=== PATIENT | female | born 1985 | race Two or more races ===

== ENCOUNTER → 2021-04-18 08:18 | Outpatient (BNVA) | payer OTHER, SELFPAY | PROVIDERS: PCP Internal Medicine; Referring Provider Internal Medicine; Visit Provider Physician Assistant ==

== ENCOUNTER → 2021-09-15 15:32 | Outpatient (BNVA) | payer OTHER, SELFPAY | PROVIDERS: PCP Internal Medicine; Visit Provider Physician Assistant Surgical | DX: Z13.89 Encounter for screening for other disorder (principal) ==

== ENCOUNTER → 2021-09-24 11:01 | Outpatient (BNVA) | payer OTHER, SELFPAY | PROVIDERS: PCP Internal Medicine; Referring Provider Internal Medicine; Visit Provider Physician Assistant Surgical | DX: E66.9 Obesity, unspecified (principal) ==

== ENCOUNTER → 2021-10-17 09:30 | Outpatient (BNVA) | payer OTHER, SELFPAY | PROVIDERS: PCP Internal Medicine; Visit Provider Physician Assistant Surgical | DX: Z13.89 Encounter for screening for other disorder (principal) ==

== ENCOUNTER 2021-10-17 17:00 | Outpatient (REF) | payer OTHER, SELFPAY ==
[2021-10-18 15:18] LABS: H Pylori Breath Test Negative (Negative)
== END 2021-10-17 17:01 | disposition home or self-care (01) ==
LOC: HO.LNP 17:00
PROVIDERS: Visit Provider Physician Assistant Surgical
DX: E66.9 Obesity, unspecified (principal); Z11.0 Encounter for screening for intestinal infectious diseases
CPT/HCPCS: 83013

== ENCOUNTER → 2021-10-24 09:45 | Outpatient (BNVA) | payer OTHER, SELFPAY | PROVIDERS: PCP Internal Medicine; Visit Provider Dietitian, Registered | DX: E66.9 Obesity, unspecified (principal) | CPT/HCPCS: 97802 ==

== ENCOUNTER 2021-11-21 09:00 | Outpatient (REF) | payer OTHER, SELFPAY ==
--- NOTE | ~2021-11-21 | XR_ITS ---
EXAMINATION: XR CHEST CLINICAL INFORMATION: Obesity COMPARISON: None TECHNIQUE: 2 views of the chest were obtained. FINDINGS: No significant abnormality is noted involving the heart, lungs, mediastinum, bony thorax or soft tissues. XR/XR chest 2V IMPRESSION: Unremarkable chest examination.
--- NOTE | 2021-11-21 09:11 | ECG_ITS ---
Test Reason : e66.9 Blood Pressure : / mmHG Vent. Rate : 058 BPM Atrial Rate : 058 BPM P-R Int : 154 ms QRS Dur : 090 ms QT Int : 392 ms P-R-T Axes : 050 016 012 degrees QTc Int : 384 ms Sinus bradycardia with sinus arrhythmia Otherwise normal ECG No previous ECGs available Referred By: Musa Geiger Electronically Signed By:Jose Riddle
[2021-11-21 09:26] LABS: MANUAL DIFF FLAG NO
[2021-11-21 09:43] LABS: Basophils Percent Auto 0.6 % (0-2); Eosinophils Absolute Auto 0.2 X10*3/uL (0.0-0.4); Eosinophils Percent Auto 2.8 % (0-4); Hematocrit 43.5 % (37.0-47.0); Hemoglobin 15.1 g/dl (12.0-16.0); Imm Gran Abs Auto 0.03 X10*3/uL (0.00-0.03); Imm Gran Pct Auto 0.6 % (0.0-0.4); Lymphocytes Absolute Auto 2.5 X10*3/uL (1.2-4.9); Lymphocytes Percent Auto 45.7 % (20-40); Mean Corpuscular HGB Conc 34.7 g/dl (31.0-35.0); Mean Corpuscular Hemoglobin 30.6 pg (27.0-33.0); Mean Corpuscular Volume 88.2 fL (80.0-98.0); Mean Platelet Volume 9.9 fL (9.4-12.3); Monocytes Absolute Auto 0.4 X10*3/uL (0.1-1.2); Monocytes Percent Auto 7.2 % (2-11); Neutrophils Absolute Auto 2.3 x10*3/uL (2.0-8.3); Neutrophils Percent Auto 43.1 % (45-73); Platelet Count 249 X10*3/uL (160-400); Red Blood Count 4.93 X10*6/uL (4.20-5.50); White Blood Count 5.4 X10*3/uL (4.8-10.8)
[2021-11-21 10:21] LABS: Alanine Aminotransferase 55 U/L (0-31); Albumin Level 4.4 g/dL (3.5-5.0); Alkaline Phosphatase 50 U/L (39-117); Anion Gap 10 (12-20); Aspartate Amino Transferase 41 U/L (5-31); Bilirubin Total 0.5 mg/dL (0.0-1.0); Blood Urea Nitrogen 8 mg/dL (9-16); C Reactive Protein 0.47 mg/dL (< or = 0.50); Calcium 9.3 mg/dL (8.4-10.2); Carbon Dioxide 29 mmol/L (22-29); Chloride 103 mmol/L (96-108); Cholesterol 158 mg/dL; Estimated Glomerular Filt Rate > 60; Glucose Random 104 mg/dL (60-115); HDL Cholesterol 34 mg/dL; Iron 148 mcg/dL (30-160); LDL Cholesterol Calculated 92 mg/dl; Percent Iron Saturation 54 % (15-50); Potassium 4.2 mmol/L (3.3-5.1); Sodium 138 mmol/L (135-145); Total Iron Binding Capacity 276 mcg/dL (228-428); Triglycerides 161 mg/dL; Unsaturated Iron Binding 128 ug/dL
[2021-11-21 10:39] LABS: Ferritin 159 ng/mL (10-122); TSH reflex Free T4 0.49 uIU/mL (0.32-4.0); Vitamin D 25-OH Total 10.3 ng/mL (>30)
[2021-11-21 10:42] LABS: Folate 17.6 ng/mL (> or = 4.0); Vitamin B12 538 pg/mL (200-900)
[2021-11-21 10:52] LABS: Insulin 32 uU/mL (2-29)
[2021-11-21 11:20] LABS: Estimated Average Glucose 131 mg/dL; Hemoglobin A1c % 6.2 %
[2021-11-25 12:11] LABS: Calcium (PTHI) 9.5 mg/dL (8.6-10.2); PTHI 43 pg/mL (16-77)
[2021-11-25 16:42] LABS: Zinc 71 mcg/dL (60-130)
[2021-11-26 09:47] LABS: Vitamin A 50 mcg/dL (38-98)
[2021-11-29 15:56] LABS: Vitamin B1 9 nmol/L (8-30)
== END 2021-11-21 09:01 | disposition home or self-care (01) ==
LOC: HO.LAB 09:00
PROVIDERS: Visit Provider Physician Assistant Surgical
DX: Z01.818 Encounter for other preprocedural examination (principal); E66.9 Obesity, unspecified
CPT/HCPCS: 36415; 71046; 80053; 80061; 82306; 82607; 82728; 82746; 83036; 83525; 83540; 83970; 84425; 84443; 84590; 84630; 85025; 86140; 93005

== ENCOUNTER 2021-12-01 09:18 | Outpatient (REF) | payer OTHER, SELFPAY ==
--- NOTE | ~2021-12-01 | FL_ITS ---
EXAMINATION: XR FLUOROSCOPY UPPER GI WITH AIR CLINICAL INFORMATION: Obesity. Preoperative evaluation prior to gastric bypass surgery COMPARISON: None TECHNIQUE: After effervescent granules, fluoroscopic spot images were obtained as the patient swallowed thick and thin barium in upright and prone positions. FINDINGS: The patient initiated swallowing normally. There is ineffective primary peristalsis with to-and-fro tertiary contractions most notable with prone swallowing. No fixed esophageal mucosal abnormality to suggest stricture or mass. No spontaneous gastroesophageal reflux observed or elicited with Valsalva maneuver. No hiatal hernia seen. Gastric fold pattern and distensibility is normal. Normal appearance of the gastric antrum. The duodenal bulb and sweep have a normal fold pattern and distensibility. FLUOROSCOPY TIME: 2.9 minutes DOSE AREA PRODUCT: 41.266 Gy-cm2 (rogers-centimeter squared) FL/FL upper GI w air IMPRESSION: Ineffective primary esophageal peristalsis with tertiary contractions most notable in the prone position. No hiatal hernia seen. No esophageal reflux observed. Normal appearance of the stomach and duodenum.
--- NOTE | ~2021-12-01 | US_ITS ---
EXAMINATION: US COMPLETE ABDOMEN WITH LIVER ELASTOGRAPHY CLINICAL INFORMATION: Obesity COMPARISON: None. TECHNIQUE: Real-time imaging of the abdominal viscera. Noninvasive ultrasound liver fibrosis assessment is performed using [place] ElastPQ point quantification shear wave elastography (2D-SWE) with a C5-2 MHz transducer. Multiple elastography samples are obtained. FINDINGS: PANCREAS: Normal. The visualized pancreatic head and body are normal in appearance. The remainder of the pancreas is obscured from visualization by the overlying bowel gas. ABDOMINAL AORTA: The proximal, middle, and distal aortic segments are normal in caliber. INFERIOR VENA CAVA: Visualized portions are normal. LIVER: Diffusely increased in echogenicity compatible with hepatic steatosis. Focal hypoechoic area adjacent to the gallbladder is most compatible with focal fatty sparing. The right lobe measures 15.1 cm in length. The left lobe measures 11.5 cm in length. Portal flow is towards the liver (hepatopetal). Shear wave liver elastography median stiffness is 1.83 m/s (reference: normal median stiffness is 1.3 m/s or less). IQR/median stiffness to assess sampling precision is 0.11 (reference: good quality data set is IQR/median stiffness of 0.15 or less). GALLBLADDER: Normal. The gallbladder is physiologically distended without evidence of stones, sludge, polyps, wall thickening or pericholecystic fluid. COMMON BILE DUCT: Normal in caliber measuring 0.6 cm in diameter. RIGHT KIDNEY: Normal. No hydronephrosis. No renal calculi or focal parenchymal lesions. The kidney measures 10.5 cm in maximum dimension. LEFT KIDNEY: Normal. No hydronephrosis. No renal calculi or focal parenchymal lesions. The kidney measures 11.0 cm in maximum dimension. SPLEEN: Normal. The spleen measures 8.5 cm in maximum dimension. FREE FLUID: None. US/US abdomen comp w elastography IMPRESSION: 1. Hepatic steatosis. 2. Liver elastography: Measurements are suggestive of compensated advanced chronic liver disease but need further test for confirmation. REFERENCE: Society of Radiologists in Ultrasound Liver Stiffness Thresholds (2020): LIVER STIFFNESS THRESHOLDS: *Liver Stiffness equal or less than 1.3 m/s: High probability of being normal. *Liver Stiffness less than 1.7 m/s: In the absence of other known clinical signs, rules out compensated advanced chronic liver disease. *Liver Stiffness 1.7-2.1 m/s: Suggestive of compensated advanced chronic liver disease but need further test for confirmation. *Liver Stiffness over 2.1 m/s: Rules in compensated advanced chronic liver disease. *Liver Stiffness over 2.4 m/s: Suggestive of clinically significant portal hypertension. QUALITY OF DATA SET: *IQR/Median value equal or less than 0.15 implies a quality data set. *IQR/Median value over 0.15 implies a poor quality data set. SIGNIFICANT CHANGE FROM PRIOR EXAM: Significant change if liver stiffness measurement is 10% or greater from prior exam. OTHER CONSIDERATIONS: The stage of liver fibrosis may be overestimated in the setting of acute hepatitis, liver inflammation, elevated liver function tests, hepatic vascular congestion, obstructive cholestasis, non-fasting state, and infiltrative diseases such as amyloidosis and lymphoma. In some patients with NAFLD, the liver stiffness thresholds for compensated advanced chronic liver disease may be lower. In causes other than viral hepatitis and NAFLD, liver stiffness thresholds are not well established.
== END 2021-12-01 09:19 | disposition home or self-care (01) ==
LOC: HO.US 09:18
PROVIDERS: Visit Provider Physician Assistant Surgical
DX: Z01.818 Encounter for other preprocedural examination (principal); E66.9 Obesity, unspecified
CPT/HCPCS: 74246; 76705; 76981

== ENCOUNTER → 2021-12-10 09:42 | Outpatient (BNVA) | payer OTHER, SELFPAY | PROVIDERS: PCP Internal Medicine; Visit Provider Dietitian, Registered | DX: E66.9 Obesity, unspecified (principal) | CPT/HCPCS: 97803 ==

== ENCOUNTER → 2022-01-09 09:09 | Outpatient (BNVA) | payer OTHER, SELFPAY | PROVIDERS: PCP Internal Medicine; Referring Provider Physician Assistant Surgical; Visit Provider Dietitian, Registered | DX: E66.9 Obesity, unspecified (principal) | CPT/HCPCS: 97803 ==

== ENCOUNTER → 2022-02-18 09:35 | Outpatient (BNVA) | payer OTHER, SELFPAY | PROVIDERS: PCP Internal Medicine; Visit Provider Dietitian, Registered | DX: E66.9 Obesity, unspecified (principal); Z68.34 Body mass index [BMI] 34.0-34.9, adult | CPT/HCPCS: 97803 ==

== ENCOUNTER → 2022-05-29 13:02 | Outpatient (BNVA) | payer OTHER, SELFPAY | PROVIDERS: PCP Internal Medicine; Visit Provider Physician Assistant Surgical | DX: Z13.89 Encounter for screening for other disorder (principal) ==

== ENCOUNTER → 2022-06-17 13:30 | Outpatient (BNVA) | payer OTHER, SELFPAY | PROVIDERS: PCP Internal Medicine; Visit Provider Physician Assistant Surgical | DX: Z13.89 Encounter for screening for other disorder (principal) ==

== ENCOUNTER → 2022-06-18 16:08 | Outpatient (BNVA) | payer OTHER, SELFPAY | PROVIDERS: PCP Internal Medicine; Visit Provider Surgery | DX: E66.9 Obesity, unspecified (principal); G47.33 Obstructive sleep apnea (adult) (pediatric); F32.A Depression, unspecified ==

== ENCOUNTER 2022-07-08 06:08 | Inpatient (IN) | payer OTHER, SELFPAY ==
[2022-06-17 11:06] VITALS: BMI 33.5
[2022-07-07 10:31] LABS: MANUAL DIFF FLAG NO
[2022-07-07 11:05] LABS: Basophils Percent Auto 0.5 % (0-2); Eosinophils Absolute Auto 0.1 X10*3/uL (0.0-0.4); Eosinophils Percent Auto 1.9 % (0-4); Hematocrit 43.7 % (37.0-47.0); Hemoglobin 14.7 g/dl (12.0-16.0); Imm Gran Abs Auto 0.02 X10*3/uL (0.00-0.03); Imm Gran Pct Auto 0.3 % (0.0-0.4); Lymphocytes Absolute Auto 2.2 X10*3/uL (1.2-4.9); Lymphocytes Percent Auto 35.1 % (20-40); Mean Corpuscular HGB Conc 33.6 g/dl (31.0-35.0); Mean Corpuscular Hemoglobin 29.6 pg (27.0-33.0); Mean Corpuscular Volume 88.1 fL (80.0-98.0); Mean Platelet Volume 9.5 fL (9.4-12.3); Monocytes Absolute Auto 0.4 X10*3/uL (0.1-1.2); Monocytes Percent Auto 5.8 % (2-11); Neutrophils Absolute Auto 3.5 x10*3/uL (2.0-8.3); Neutrophils Percent Auto 56.4 % (45-73); Platelet Count 288 X10*3/uL (160-400); Red Blood Count 4.96 X10*6/uL (4.20-5.50); Red Cell Distribution Width 11.4 % (11.0-16.0); White Blood Count 6.2 X10*3/uL (4.8-10.8)
[2022-07-07 11:12] LABS: Estimated Average Glucose 111 mg/dL; Hemoglobin A1C 138.1743 umol/L; Hemoglobin A1c % 5.5 %
[2022-07-07 11:20] LABS: Prothrombin Time 11.1 SEC (10.0-13.1)
[2022-07-07 11:23] LABS: Partial Thromboplastin Time 26.6 SEC (26.0-36.4)
[2022-07-07 11:41] LABS: Alanine Aminotransferase 23 U/L (0-31); Albumin Level 4.3 g/dL (3.5-5.0); Alkaline Phosphatase 48 U/L (39-117); Anion Gap 10 (12-20); Aspartate Amino Transferase 20 U/L (5-31); Bilirubin Total 0.8 mg/dL (0.0-1.0); Blood Urea Nitrogen 8 mg/dL (9-16); C Reactive Protein 0.27 mg/dL (< or = 0.50); Calcium 9.2 mg/dL (8.4-10.2); Carbon Dioxide 28 mmol/L (22-29); Chloride 105 mmol/L (96-108); Cholesterol 140 mg/dL; Estimated Glomerular Filt Rate > 60; Glucose Random 82 mg/dL (60-115); HDL Cholesterol 28 mg/dL; Iron 85 mcg/dL (30-160); LDL Cholesterol Calculated 90 mg/dl; Percent Iron Saturation 34 % (15-50); Potassium 4.3 mmol/L (3.3-5.1); Sodium 139 mmol/L (135-145); Total Iron Binding Capacity 252 mcg/dL (228-428); Total Protein 6.6 g/dL (6.5-8.0); Triglycerides 113 mg/dL; Unsaturated Iron Binding 167 ug/dL
[2022-07-07 12:08] LABS: Ferritin 144 ng/mL (10-122); TSH reflex Free T4 0.59 uIU/mL (0.32-4.0); Vitamin B12 544 pg/mL (200-900); Vitamin D 25-OH Total 8.1 ng/mL (>30)
[2022-07-07 14:04] LABS: COVID-19 Test Negative (Negative); IDNOW Serial# 16C4AD1C
[2022-07-08] VITALS (13 sets, daily range): BP systolic 125–146; BP diastolic 76–90; PULSE 78–97; RESP 11–20; TEMP 36.2–37.1; O2SAT 94–100
[2022-07-08 06:34] LABS: UPreg QC Valid YES; Urine Pregnancy NEGATIVE (NEGATIVE)
--- NOTE | 2022-07-08 06:55 | P.OP_ITS ---
Operative Note Operative Note Date of Service: 07/08/22 Narrative: Preop diagnosis: [Obesity, IVANIA, CARSON, prediabetes] Postop diagnosis: [same] Procedure: [Laparoscopic sleeve gastrectomy gastrectomy, intraoperative upper endoscopy, gastropexy] Surgeon: Kvng Sy MD Assist: [Patricia Palomino PA-C] Anesthesia: [GET,] Estimated blood loss: [5cc] Specimen: [Portion of stomach with fundus] Intraoperative findings: [CARSON, grossly normal liver and stomach, no evidence of hiatal hernia] Indications: [The patient is a 36-year-old woman with a history of morbid obesity who entered [facility] with a weight of 254 lb/BMI 36.8 on 09/24/2021 with a comorbidities of obstructive sleep apnea, CARSON and prediabetes. She had failed numerous attempts at medical weight loss and, after reviewing options including medical management, surgical options of laparoscopic sleeve gastrectomy and g astric bypass, an historic interpreter helped explain risks, benefits, options in the importance of proper diet and increased exercise to optimize surgical weight loss. I reviewed the inherent risks of this procedure via historic interpreter which include, but are not limited to: Bleeding that could require another operation or blood transfusion; the inherent risks of transfusion reaction infectious disease from blood transfusions; the risk of staple line leaks that could cause sepsis, multi-system organ failure and ; the risk of mesenteric or deep vein thrombosis of the lower extremities that could cause a fatal pulmonary embolism was reviewed; the risk of GERD that could require conversion to gastric bypass was discussed; the risk of recurrent hiatal hernia, especially in the setting of weight regain was reviewed. The risk of weight regain if maladaptive eating and sedentary behavior continue was discussed. The importance of proper diet and increased activity to augment surgical weight loss and the fact that no operation would result in weight loss of poor dietary decisions and sedentary behavior are resumed were discussed at length and apparently understood.] Procedure: [The patient was identified by myself in the preoperative holding area and again in OR6 by myself. The patient was identified in the preoperative holding area by myself and again in the operating suite by myself and the team. Patient was placed supine on the operating table. Safety straps were utilized and a footboard utilized. The patient was induced in general endotracheal anesthesia administered with excellent effect. An appropriate time-out was performed. The patient's abdomen was then widely prepped and draped in the usual manner for surgery using chlorhexidine. Antibiotics per protocol were administered by Anesthesia. After infiltrating preemptive local in the skin and subcutaneous tissues in the epigastrium approximately 10cm from the xiphoid and the midline of the epigastrium, a stab incision was made sharply in the left subcostal abdomen and the Veress needle inserted without incident. An appropriate drop test was performed then a pneumoperitoneum of 15 mmHg was obtained using carbon dioxide. Opening pressure was 9 mmHg. Next, a 5 mm 0 degree scope over a 5 mm Optiview trocar was used to access the abdomen via the epigastric incision in the midline. Once the abdomen was entered, the the trocar obturator was removed and the laparoscope was used to confirm there was no injury from the Veress needle nor trocar insertion injury to the bowel or mesentery, then the scope was s witched to a 5 mm 45 degree laparoscope. Next, using preemptive local, additional 5 mm trocars were placed under direct laparoscopic vision on the patient's left abdomen, then right and the 5 mm midline trocar upsized to a 12 mm to accommodate the stapler. The patient was then positioned in reverse Trendelenburg and the liver retractor deployed through the right lateral 5 mm trocar and secured. A 40 [place] ViSiGi bougie was inserted by Anesthesia per os and advanced to the stomach to decompress. It was then withdrawn to the GE junction all under direct laparoscopic vision. Dissection was begun along the greater curvature using the 5 mm [place] LigaSure for hemostasis and continued to the left karlo of the diaphragm. Dissection was then carried towards the pylorus to 3-4 cm from the pylorus and retro gastric adhesions lysed. The gastroesophageal fat pad was carefully mobilized taking care to avoid injury to the esophagus and stomach and dissection carried towards the short gastrics taking care to avoid injury to the spleen and splenic artery. The diaphragmatic hiatus was carefully examined for a hernia. Next, the 40 Fr ViSiGi bougie was advanced by anesthesia under direct vision and laparoscopic guidance and positioned in the antrum approximately 3 cm from the pylorus using laparoscopic graspers to serve as a guide for a stapled sleeve gastrectomy. Stapling was performed with [place]- ROBERT stapler with a purple 45 and then orange 45 and 60 loads. The bougie served as a guide to maintain the same sleeve caliber to avoid stricture & sleeve distortion. The 10 mm clip set making machine operator was used to apply additional clips to the staple line. Care was taken to be sure that the sleeve laid flat and was without stricture. Once the sleeve was complete, the portion of stomach was placed in the lower abdomen to be sent for permanent section. The staple line, gastrocolic omentum, spleen and short gastric areas were all inspected for hemostasis which was found to be good. The ViSiGi bougie used for a leak test by reducing the reverse Trendelenburg and instilling sterile saline. Anesthesia that ran of O2 at 1 L per minute via the tube and no bubbles were demonstrated from the staple line. Next, the bougie was withdrawn under laparoscopic vision used to suction the esophagus and hypopharynx and then discarded. Next, I broke scrub perform an on-table upper endoscopy to assess the sleeve and the esophagus and stomach. The patient was returned to neutral position and the Olympus 160 gastroscope was advanced taking care to preserve the endotracheal tube. The esophagus was intubated without incident. Minimal air was insufflated and the scope advanced into the newly formed sleeve. The staple line was inspected for hemostasis and the morphology of the sleeve appeared straight with a uniform diameter. Intraoperatively, there was no evidence of staple line leak seen during laparoscopy as air was insufflated via endoscope. The scope was then used to aspirate the air from the sleeve withdrawn and removed. I then rescrubbed to return to the operative field and again inspected the field for hemostasis. The patient was again placed in reverse Trendelenburg. A gastropexy was performed using 2-0 Polysorb suture to secure the sleeve gastrectomy to the gastrocolic omentum. After final assessment for hemostasis, the patient was returned to neutral position, a Sissy used to withdraw the stomach which was sent for permanent section. The fascia of the 12 mm midline was closed using an 0 Polysorb on a suture Passer under direct laparoscopic vision. The abdomen was then deflated and all trocars removed. The suture was then tied and the skin closed with 4-0 Monocryl subcuticular sutures. The abdomen was then washed and dried, benzoin and Steri-Strips applied followed by Band-Aids. The patient tolerated the procedure well was then extubated the recover in stable condition. All sponge needle and instrument counts were correct x2. At the patient's request, I contacted her , Alan, at [phone] to notify him of the operation and typical postoperative course. His questions seemed to be satisfactorily answered. Sarika served as historic interpreter with a call from the bariatric office]
[2022-07-08] MEDS: Lactated Ringers 1,000 ML 150 ML IVCONT (06:56)
[2022-07-08] MEDS: Scopolamine 1.5 MG PATCH.TD.3 TRANSDERMA (06:56)
--- NOTE | 2022-07-08 07:21 | P.CONAN_ITS ---
HPI - Anesthesia Eval Consult details Narrative: 37 F for gastric sleeve right shoulder pain , muscle tear since 5-6 years . IVANIA PMFSH Active Problems Active Problems: All Active Problems (Updated 06/17/22 @ 11:05 by Oralia Kaur RN) Obesity (BMI 30-39.9) (Acute) Depression (Acute) IVANIA (obstructive sleep apnea) (Acute) Past Medical History Medical History Depression Insomnia Prediabetes Sleep apnea Functional capacity: independent ambulation Family History Family History Mother Hypertension Diabetes Umbilical hernia Father Uses hearing aid Sister No problems noted. Sister No problems noted. Brother No problems noted. Daughter No problems noted. Daughter No problems noted. Family history of problems with anesthesia: No Surgical History Surgical History Hx of section History of Problems with Anesthesia: No Social History Social History Are you a primary respiratory care faculty to a significant other at home: No Do you presently have visiting nurse or other home services: No Alcohol intake: current Alcohol intake frequency: holidays/special occasions only Patient Tobacco Use Status: Never used Tobacco Use of substances other than those prescribed or required for medical reasons: No Currently Displaying Signs/Symptoms of Drug Intoxication Withdrawal: No Have you been hit, kicked, punched, or otherwise hurt by someone within the past year? If so, by whom?: No Are you DNR?: No Advance Directives: No Advance Directives Information Provided: Yes (Mailed w/ pre-op instructions) Advance Directives on File: No Recently lost weight without trying: No How much weight loss: 14-23 pounds Eating poorly because of decreased appetite: No Nutrition screen score: 2 Nutrition Risks: No Nutritional Risk Patient : No FDLMP: irreg : No Poor oral hygiene: No Meds Allergies Allergy/AdvReac Type Severity Reaction Status Date / Time No Known Allergies Allergy Verified 06/18/22 16:13 Active Medications: Current Medications Lactated Ringer's (Lr) 1,000 mls @ 150 mls/hr IVCONT .[id number] LYDIA Last Admin: 07/08/22 06:56 Dose: 150 mls/hr Home Medications Medication Instructions Recorded Confirmed Last Taken Type melatonin 3 mg tablet 3 mg PO BEDTIME PRN Sleep 06/17/22 07/08/22 07/05/22 History Exam Exam Date and Time: July 08, [id number] Height,Weight and Vital Signs: Height 5 ft 10 in Weight 106.141 kg Last Vital Signs Temp 98.7 F 07/08/22 06:19 Pulse 78 07/08/22 06:19 Resp 20 07/08/22 06:19 BP 125/83 07/08/22 06:19 Pulse Ox 98 07/08/22 06:19 O2 Del Method 07/08/22 06:19 Pertinent Lab Results Pertinent Lab Results: Laboratory Tests 07/07/22 07/07/22 07/07/22 10:25 10:30 10:30 WBC 6.2 RBC 4.96 Hgb 14.7 Hct 43.7 MCV 88.1 MCH 29.6 MCHC 33.6 RDW 11.4 Plt Count 288 MPV 9.5 Immature Gran % (Auto) 0.3 Neut % (Auto) 56.4 Lymph % (Auto) 35.1 [place] % (Auto) 5.8 Eos % (Auto) 1.9 Baso % (Auto) 0.5 Lymph # (Auto) 2.2 [place] # (Auto) 0.4 Eos # (Auto) 0.1 Baso # (Auto) 0.0 Abs Immat Gran (auto) 0.02 Absolute Neuts (auto) 3.5 Absolute Nucleated RBC 0.000 Nucleated RBC % (auto) 0.0 PT 11.1 INR 1.0 APTT 26.6 Sodium Potassium Chloride Carbon Dioxide Anion Gap BUN Creatinine Estim Creat Clear Calc Estimated GFR Random Glucose Estimat Average Glucose Hemoglobin A1c % Calcium Iron TIBC % Saturation Unsat Iron Binding Ferritin Total Bilirubin AST ALT Alkaline Phosphatase C-Reactive Protein Total Protein Albumin Triglycerides Cholesterol LDL Cholesterol, Calc HDL Cholesterol Vitamin B12 25-OH Vitamin D Total TSH Urine Test COVID-19 (ABEBA) COVID-19 Clin Com Blood Type B Positive Antibody Screen NEGATIVE 07/07/22 07/07/22 07/07/22 10:30 10:30 13:30 WBC RBC Hgb Hct MCV MCH MCHC RDW Plt Count MPV Immature Gran % (Auto) Neut % (Auto) Lymph % (Auto) [place] % (Auto) Eos % (Auto) Baso % (Auto) Lymph # (Auto) [place] # (Auto) Eos # (Auto) Baso # (Auto) Abs Immat Gran (auto) Absolute Neuts (auto) Absolute Nucleated RBC Nucleated RBC % (auto) PT INR APTT Sodium 139 Potassium 4.3 Chloride 105 Carbon Dioxide 28 Anion Gap 10 L BUN 8 L Creatinine 0.86 Estim Creat Clear Calc 117.0 Estimated GFR > 60 Random Glucose 82 Estimat Average Glucose 111 Hemoglobin A1c % 5.5 Calcium 9.2 Iron 85 TIBC 252 % Saturation 34 Unsat Iron Binding 167 Ferritin 144 H Total Bilirubin 0.8 AST 20 ALT 23 Alkaline Phosphatase 48 C-Reactive Protein 0.27 Total Protein 6.6 Albumin 4.3 Triglycerides 113 Cholesterol 140 LDL Cholesterol, Calc 90 HDL Cholesterol 28 Vitamin B12 544 25-OH Vitamin D Total 8.1 TSH 0.59 Urine Test COVID-19 (ABEBA) Negative COVID-19 [employer] See Note Blood Type Antibody Screen 07/08/22 06:10 WBC RBC Hgb Hct MCV MCH MCHC RDW Plt Count MPV Immature Gran % (Auto) Neut % (Auto) Lymph % (Auto) [place] % (Auto) Eos % (Auto) Baso % (Auto) Lymph # (Auto) [place] # (Auto) Eos # (Auto) Baso # (Auto) Abs Immat Gran (auto) Absolute Neuts (auto) Absolute Nucleated RBC Nucleated RBC % (auto) PT INR APTT Sodium Potassium Chloride Carbon Dioxide Anion Gap BUN Creatinine Estim Creat Clear Calc Estimated GFR Random Glucose Estimat Average Glucose Hemoglobin A1c % Calcium Iron TIBC % Saturation Unsat Iron Binding Ferritin Total Bilirubin AST ALT Alkaline Phosphatase C-Reactive Protein Total Protein Albumin Triglycerides Cholesterol LDL Cholesterol, Calc HDL Cholesterol Vitamin B12 25-OH Vitamin D Total TSH Urine Test NEGATIVE COVID-19 (ABEBA) COVID-19 [employer] Com Blood Type Antibody Screen Airway Mallampati Class: IV TM Dist: <=3cm Neck ROM: Full Loose/Missing/Broken Teeth: Yes Heart: S1,S2 Lungs: distant breath sounds Assessment and Plan Assessment Anesthesia Assessment: Anesthesia Plan Discussed and Chart Reviewed Final Anesthetic Review Family History of Problems with Anesthesia: No History of Problems with Anesthesia: No NPO: Yes ASA Class: III Final Preanesthetic Review: Meds/Allgs Chart Reviewed, Consent Obtained/Reviewed and Anes Risks/Benef Reviewed Patient Risk: Intermediate Procedure Risk: Intermediate Anesthetic Plan Anesthetic Plan: GA Disposition: Standard PACU
--- NOTE | 2022-07-08 07:23 | MHC.SHP ---
Pre-Procedural Eval Section A Date of Service: 07/08/22 The patient is an INPATIENT: Yes The History & Physical has been completed within 30 days and I have reviewed it.: Yes Section B Chief Complaint: s/p sleeve gastrectomy Allergies: Allergies Allergy/AdvReac Type Severity Reaction Status Date / Time No Known Allergies Allergy Verified 06/18/22 16:13 Plan I have reviewed the history and physical and performed a pertinent physical examination on my patient. No changes have occurred unless specified. Time Spent With Patient Time: Total time managing care of this patient today ____ minutes.
--- NOTE | 2022-07-08 07:30 | P.CONAN_ITS ---
[facility] Active Problems Active Problems: All Active Problems (Updated 06/17/22 @ 11:05 by Oralia Kaur RN) Obesity (BMI 30-39.9) (Acute) Depression (Acute) IVANIA (obstructive sleep apnea) (Acute) Past Medical History Medical History Depression Insomnia Prediabetes Sleep apnea Functional capacity: independent ambulation Family History Family History Mother Hypertension Diabetes Umbilical hernia Father Uses hearing aid Sister No problems noted. Sister No problems noted. Brother No problems noted. Daughter No problems noted. Daughter No problems noted. Family history of problems with anesthesia: No Surgical History Surgical History Hx of section History of Problems with Anesthesia: No Social History Social History Are you a primary lawn care professional to a significant other at home: No Do you presently have visiting nurse or other home services: No Alcohol intake: current Alcohol intake frequency: holidays/special occasions only Patient Tobacco Use Status: Never used Tobacco Use of substances other than those prescribed or required for medical reasons: No Have you been hit, kicked, punched, or otherwise hurt by someone within the past year? If so, by whom?: No Are you DNR?: No Advance Directives: No Advance Directives Information Provided: Yes (Mailed w/ pre-op instructions) Advance Directives on File: No Recently lost weight without trying: No How much weight loss: 14-23 pounds Eating poorly because of decreased appetite: No Nutrition screen score: 2 Nutrition Risks: No Nutritional Risk Patient : No FDLMP: irreg : No Poor oral hygiene: No Meds Allergies Allergy/AdvReac Type Severity Reaction Status Date / Time No Known Allergies Allergy Verified 06/18/22 16:13 Active Medications: Current Medications Lactated Ringer's (Lr) 1,000 mls @ 150 mls/hr IVCONT .Q6H40M LYDIA Last Admin: 07/08/22 06:56 Dose: 150 mls/hr Home Medications Medication Instructions Recorded Confirmed Last Taken Type melatonin 3 mg tablet 3 mg PO BEDTIME PRN Sleep 06/17/22 07/08/22 07/05/22 History Exam Exam Date and Time: July 08, 2022 0730 Height,Weight and Vital Signs: Height 5 ft 10 in Weight 106.141 kg Last Vital Signs Temp 98.7 F 07/08/22 06:19 Pulse 78 07/08/22 06:19 Resp 20 07/08/22 06:19 BP 125/83 07/08/22 06:19 Pulse Ox 98 07/08/22 06:19 O2 Del Method 07/08/22 06:19 Pertinent Lab Results Pertinent Lab Results: Laboratory Tests 07/07/22 07/07/22 07/07/22 10:25 10:30 10:30 WBC 6.2 RBC 4.96 Hgb 14.7 Hct 43.7 MCV 88.1 MCH 29.6 MCHC 33.6 RDW 11.4 Plt Count 288 MPV 9.5 Immature Gran % (Auto) 0.3 Neut % (Auto) 56.4 Lymph % (Auto) 35.1 [place] % (Auto) 5.8 Eos % (Auto) 1.9 Baso % (Auto) 0.5 Lymph # (Auto) 2.2 [place] # (Auto) 0.4 Eos # (Auto) 0.1 Baso # (Auto) 0.0 Abs Immat Gran (auto) 0.02 Absolute Neuts (auto) 3.5 Absolute Nucleated RBC 0.000 Nucleated RBC % (auto) 0.0 PT 11.1 INR 1.0 APTT 26.6 Sodium Potassium Chloride Carbon Dioxide Anion Gap BUN Creatinine Estim Creat Clear Calc Estimated GFR Random Glucose Estimat Average Glucose Hemoglobin A1c % Calcium Iron TIBC % Saturation Unsat Iron Binding Ferritin Total Bilirubin AST ALT Alkaline Phosphatase C-Reactive Protein Total Protein Albumin Triglycerides Cholesterol LDL Cholesterol, Calc HDL Cholesterol Vitamin B12 25-OH Vitamin D Total TSH Urine Test COVID-19 (ABEBA) COVID-19 Clin Com Blood Type B Positive Antibody Screen NEGATIVE 07/07/22 07/07/22 07/07/22 10:30 10:30 13:30 WBC RBC Hgb Hct MCV MCH MCHC RDW Plt Count MPV Immature Gran % (Auto) Neut % (Auto) Lymph % (Auto) [place] % (Auto) Eos % (Auto) Baso % (Auto) Lymph # (Auto) [place] # (Auto) Eos # (Auto) Baso # (Auto) Abs Immat Gran (auto) Absolute Neuts (auto) Absolute Nucleated RBC Nucleated RBC % (auto) PT INR APTT Sodium 139 Potassium 4.3 Chloride 105 Carbon Dioxide 28 Anion Gap 10 L BUN 8 L Creatinine 0.86 Estim Creat Clear Calc 117.0 Estimated GFR > 60 Random Glucose 82 Estimat Average Glucose 111 Hemoglobin A1c % 5.5 Calcium 9.2 Iron 85 TIBC 252 % Saturation 34 Unsat Iron Binding 167 Ferritin 144 H Total Bilirubin 0.8 AST 20 ALT 23 Alkaline Phosphatase 48 C-Reactive Protein 0.27 Total Protein 6.6 Albumin 4.3 Triglycerides 113 Cholesterol 140 LDL Cholesterol, Calc 90 HDL Cholesterol 28 Vitamin B12 544 25-OH Vitamin D Total 8.1 TSH 0.59 Urine Test COVID-19 (ABEBA) Negative COVID-[facility] See Note Blood Type Antibody Screen 07/08/22 06:10 WBC RBC Hgb Hct MCV MCH MCHC RDW Plt Count MPV Immature Gran % (Auto) Neut % (Auto) Lymph % (Auto) [place] % (Auto) Eos % (Auto) Baso % (Auto) Lymph # (Auto) [place] # (Auto) Eos # (Auto) Baso # (Auto) Abs Immat Gran (auto) Absolute Neuts (auto) Absolute Nucleated RBC Nucleated RBC % (auto) PT INR APTT Sodium Potassium Chloride Carbon Dioxide Anion Gap BUN Creatinine Estim Creat Clear Calc Estimated GFR Random Glucose Estimat Average Glucose Hemoglobin A1c % Calcium Iron TIBC % Saturation Unsat Iron Binding Ferritin Total Bilirubin AST ALT Alkaline Phosphatase C-Reactive Protein Total Protein Albumin Triglycerides Cholesterol LDL Cholesterol, Calc HDL Cholesterol Vitamin B12 25-OH Vitamin D Total TSH Urine Test NEGATIVE COVID-19 (ABEBA) COVID-[facility] Blood Type Antibody Screen Assessment and Plan Final Anesthetic Review Family History of Problems with Anesthesia: No History of Problems with Anesthesia: No
[2022-07-08 10:03] LABS: PTHI 34 pg/mL (16-77)
--- NOTE | 2022-07-08 10:45 | PHA.MEDREC ---
Pharmacy Consult ? Medication Reconciliation Pharmacy has completed the medication reconciliation.
--- NOTE | 2022-07-08 11:21 | P.DS_ITS ---
DS: Providers Provider Date of Service: 07/09/22 Date of admission: 07/08/22 06:08 Primary care physician: Nely Nolasco DO DS: Summary Hospital Course Hospital Course: ADMITTING DIAGNOSIS: morbid obesity,?IVANIA DISCHARGE DIAGNOSIS: same, s/p laparoscopic sleeve gastrectomy and gastropexy PAST SURGICAL HISTORY:? PROCEDURE: upper endoscopy, laparoscopic sleeve gastrectomy and gastropexy DISCHARGE SUMMARY: History of Present Illness: The patient is a?37 ? year-old woman with a BMI of? ?33.6 ? kg/m2 and associated co-morbidities as described above. The patient had extensive work-up, lost? ?20 ? lbs preoperatively and was electively scheduled for laparoscopic, possible open sleeve gastrectomy and gastropexy. Risks and complications of the surgery were discussed with the patient in advance, particularly the possibility of , pulmonary embolism, anastomotic leak, bleeding, bowel injury, GERD, cardiac, renal or pulmonary complications. The patient understood all the risks and was in agreement with the surgical plan. Hospital Course: The patient underwent an uneventful laparoscopic sleeve gastrectomy with gastropexy on the day of admission. Postoperatively, the patient was transferred to the surgical floor. The patient received IV Acetaminophen and IV dilaudid for pain control. Patient was started on bariatric phase 1 diet POD #0. On postoperative day one, the patient was feeling well without nausea, vomiting, fevers, or tachycardia. The patient had some mild incisional pain and the abdomen was soft.? On the morning of postoperative day one, the patient was continued on 1 ounce of water or ice every half hour. During the day, the patient did fairly well, having some incisional pain, but able to ambulate adequately and to tolerate liquids well. Since the patient is doing well, we decided that the patient was ready to be discharged. The patient was given instructions to follow-up next week and to ca ll the office for any fever over 101, persistent abdominal pain, nausea, vomiting, GERD, symptoms of DVT such as calf tenderness, or leg swelling, or pulmonary embolism such as chest pain or shortness of breath.? The patient was also instructed to drink 40-60 ounces of liquids per day using the 1-ounce cups. The patient had been given prescriptions for Tylenol for pain, Zofran prn for nausea, and pantoprazole and carafate previously. The patient was encouraged to ambulate and use the incentive spirometer. The patient was allowed to shower, but no baths, and encouraged to stay active at home. All of these instructions were given to the patient personally. All questions were answered and the patient understood all instructions, the instructions were also given to the patient in print. Time Spent with Patient Time attestation: Total time managing care of this patient today ____ minutes. Discharge coordination time: Less than 30 minutes Quality: Safe Use of Opioids Does Pt have an Active Cancer Diagnosis on the Problem List?: No Quality: Stroke Does the patient have a stroke diagnosis?: No Physical Exam Vital Signs: Vital Signs: Last Vital Signs Temp 97.5 F 07/08/22 11:06 Pulse 90 07/08/22 11:16 Resp 17 07/08/22 11:16 BP 135/83 07/08/22 11:16 Pulse Ox 100 07/08/22 11:16 O2 Del Method 07/08/22 11:16 O2 Flow Rate 6 07/08/22 11:16 BMI result Body Mass Index 33.5 DS: Data Data Completed and Pending Pending studies at discharge: Pending at discharge 07/08/22 09:54 Surgical [PTH] Routine Labs on day of discharge: Laboratory Results - last 24 hr 07/07/22 07/07/22 07/07/22 10:25 10:30 10:30 PT 11.1 INR 1.0 APTT 26.6 Sodium 139 Potassium 4.3 Chloride 105 Carbon Dioxide 28 Anion Gap 10 L BUN 8 L Creatinine 0.86 Estim Creat Clear Calc 117.0 Estimated GFR > 60 Random Glucose 82 Calcium 9.2 Iron 85 TIBC 252 % Saturation 34 Unsat Iron Binding 167 Ferritin 144 H Total Bilirubin 0.8 AST 20 ALT 23 Alkaline Phosphatase 48 C-Reactive Protein 0.27 Total Protein 6.6 Albumin 4.3 Triglycerides 113 Cholesterol 140 LDL Cholesterol, Calc 90 HDL Cholesterol 28 Vitamin B12 544 25-OH Vitamin D Total 8.1 TSH 0.59 PTH Intact Calcium (PTH Intact) Urine Test COVID-19 (ABEBA) COVID-19 Clin Com Blood Type B Positive Antibody Screen NEGATIVE 07/07/22 07/07/22 07/08/22 10:30 13:30 06:10 PT INR APTT Sodium Potassium Chloride Carbon Dioxide Anion Gap BUN Creatinine Estim Creat Clear Calc Estimated GFR Random Glucose Calcium Iron TIBC % Saturation Unsat Iron Binding Ferritin Total Bilirubin AST ALT Alkaline Phosphatase C-Reactive Protein Total Protein Albumin Triglycerides Cholesterol LDL Cholesterol, Calc HDL Cholesterol Vitamin B12 25-OH Vitamin D Total TSH PTH Intact 34 Calcium (PTH Intact) 9.0 Urine Test NEGATIVE COVID-19 (ABEBA) Negative COVID-19 Clin Com See Note Blood Type Antibody Screen Discharge Plan Discharge Anticipated Discharge Date/Time: 07/09/22 10:16 Patient Disposition: Home, Self-Care Discharge Diagnosis: obesity s/p laparoscopic sleeve gastrectomy with gastropexy Referrals: Nely Cade DO [Primary Care Provider] - 1 Week Kvng Sy MD [Physician] - 1 Week Discharge Medications: Continued melatonin 3 mg Tablet 3 mg PO BEDTIME PRN (Reason: Sleep) pantoprazole 40 mg tablet,delayed release (DR/EC) 40 mg PO QAM 30 Days Qty: 30 2RF sucralfate 100 mg/mL suspension 10 ml PO BID 30 Days Qty: 600 2RF Held ondansetron HCl 4 mg tablet 4 mg PO Q6H PRN (Reason: nausea and vomiting) Qty: 20 0RF Hold Instructions: Resume on 07/15/22. Discharge Orders: Discharge Order (Routine); Ordered 07/09/22 Ordered By: Kvng Sy Diet: Bariatric diet Activity on Discharge: No heavy lifting Stand Alone Forms: Patient Portal Discharge page Care Plan Goals: weight loss Health Concerns: obesity, sleep apnea Plan of Treatment: No tub baths, sex or returning to work until discussed at first post op appointment. No alcohol, tobacco or illegal drug use. Continue to use incentive spirometer hourly while awake. Walk in home for 5- 10 minutes every 2 hours during the first week. Wear abdominal binder with activity. Continue phase 1 diet and follow all meal plan instructions from your bariatric surgeon. Review bariatric handbook and call with any questions. Discharge Instructions 1. Please call your doctor or come back to the emergency room should any new symptoms arise. 2. Activity: abstain from alcohol,? limited stair climbing, no bending, no driving, no exercise, no illicit substances, no lifting, no sex, no tub bath, no work. 4. Diet: follow your bariatric surgeons recommendations for advancing diet. 5. Dressing Change/Wound Care: Your incisions are covered with waterproof dressings. You can shower with these and pat dry. Do not rub over dressings or incisions. If the area is tender, you may apply an ice pack for short intervals (no more than 20 minutes on, followed by at least 20 minutes off). Do not apply heat. Do not use creams, lotions, or topical antibiotics unless instructed to do so by your surgeon. 6. Call your doctor if: - Your temperature exceeds 101.5 F - You experience excessive pain or swelling - You have an unexpected reaction to medication - You have excessive bleeding - You experience continued vomiting/nausea - Your incision begins to separate - Your incision shows signs of infection such as increased redness, swelling, excessive pain, heat, or drainage (light blood or clear fluid is normal) General instructions: No lifting greater than 10 lbs for the next 6 weeks[address] within 24 hours of taking narcotic pain medications. If you do not move your bowels in the next 2 days, please take milk of magnesia over the counter. Please follow the post op diet and do not advance your diet until you are seen in the office in about 2 weeks. Please walk around your home every hour or two to prevent blood clots from forming in your legs. You do not need to wake from sleeping to walk. Please sleep in a bed or couch to prevent kinking at the hips and knees. Please take your incentive spirometer (your lung deicer inspector pneumatic) home with you and use it for the next few days to prevent pneumonias. You may shower, no hot tubs, baths or swimming pools. Please call the office with any questions or concerns such as increasing abdominal pain, fever, chills, shortness of breath, chest pain, leg pain or swelling, or redness or drainage from your incisions. Please make sure you are consuming 40-60 ounces of total fluids per day. Avoid all carbonation. Do not hesitate to contact the office with any questions at . The patient's medical history has been reviewed and they are considered low risk for post op DVT and therefore DVT prophylaxis is not considered necessary. Travel after surgery was reviewed. The patient has not disclosed any travel plans during the first 30 days after surgery and they have been advised that within the first 30 days after surgery any bus, plane, train or car travel over 2 hours in duration is contraindicated due to the possibility of developing blood clots from immobility. Any travel, needs to include periods of ambulation of 10 minutes in duration every 2 hours.? The patient was instructed to discuss any plans for travel during this period with their bariatric surgeon. Assessment: s/p laparoscopic sleeve gastrectomy with gastropexy
[2022-07-08 11:42] LABS: Hematocrit 40.9 % (37.0-47.0)
[2022-07-08 12:03] LABS: Anion Gap 11 (12-20); Blood Urea Nitrogen 11 mg/dL (9-16); Calcium 8.6 mg/dL (8.4-10.2); Carbon Dioxide 27 mmol/L (22-29); Chloride 104 mmol/L (96-108); Creatinine Clr Calc Pharmacy 108.1; Estimated Glomerular Filt Rate > 60; Glucose Random 121 mg/dL (60-115); Potassium 4.3 mmol/L (3.3-5.1); Sodium 138 mmol/L (135-145)
--- NOTE | 2022-07-08 12:30 | PM.PNGS ---
Subjective Subjective Date of Service: 07/08/22 Patient reports: still having pain Interval history: The patient is seen with her at the bedside. She had an episode of vomiting that had some old blood as well as some nausea. Patient has some incisional pain in his requesting a narcotic. In discussion with the nurse, no Dilaudid has been administered yet. She otherwise denies pain in her chest or trouble breathing. Physical Exam Vital Signs: Vital Signs: Last Vital Signs Temp 97.5 F 07/08/22 11:06 Pulse 90 07/08/22 12:06 Resp 19 07/08/22 12:06 BP 133/86 07/08/22 12:06 Pulse Ox 100 07/08/22 12:06 O2 Del Method 07/08/22 12:06 O2 Flow Rate 3 07/08/22 12:06 BMI result Body Mass Index 33.5 On exam she is nontoxic She is in no acute respiratory distress Abdominal binder is intact Objective Data Active Medications Lactated Ringer's (Lr) 1,000 mls @ 150 mls/hr IVCONT .Q6H40M LYDIA Last Admin: 07/08/22 06:56 Dose: 150 mls/hr Documented By: CAROLINE Labs 07/08/22 11:29 07/08/22 11:29 Labs: Laboratory Results - last 24 hr 07/07/22 07/07/22 07/08/22 10:30 13:30 06:10 Anion Gap Estim Creat Clear Calc Estimated GFR Random Glucose Calcium PTH Intact 34 Calcium (PTH Intact) 9.0 Urine Test NEGATIVE COVID-19 (ABEBA) Negative COVID-19 Clin Com See Note 07/08/22 11:29 Anion Gap 11 L Estim Creat Clear Calc 108.1 Estimated GFR > 60 Random Glucose 121 H Calcium 8.6 D PTH Intact Calcium (PTH Intact) Urine Test COVID-19 (ABEBA) COVID-19 Clin Com Procedures Date of Service Date of Service: 07/08/22 Progress Note: A&P Assessment and plan (1) S/P laparoscopic sleeve gastrectomy: Status: Acute (2) Obesity (BMI 30-39.9): Status: Acute (3) Depression: Status: Acute (4) IVANIA (obstructive sleep apnea): Status: Acute Plan I spoke with the nurse. A dose of Dilaudid will be administered, 0.25 IV Continue sips, incentive spirometry, IV fluid and OOB/ambulation See orders Trend labs Time Spent With Patient Time: Total time managing care of this patient today ____ minutes. Quality Stroke Does the patient have a stroke diagnosis?: No VTE Prior VTE?: No VTE Risk Level:: Surgical - moderate VTE Device Contraindication: N/A - Device Ordered VTE Drug Contraindication: Treatment Not Indicated
--- NOTE | 2022-07-08 13:16 | PHA.MEDREC ---
Pharmacy Consult ? Medication Reconciliation Pharmacy has completed the medication reconciliation. Double checked med rec done by nursing
[2022-07-08] MEDS: ceFAZolin Sodium/Dextrose,Iso 2 GM/50 ML PIGGYBACK IV (13:33)
[2022-07-08] MEDS: Acetaminophen 1,000 MG/100 ML PIGGYBACK 16.7 MG IV ×2 (14:10→19:34)
[2022-07-08] MEDS: Metoclopramide HCl 10 MG/2 ML VIAL IVPUSH (16:50)
[2022-07-08] MEDS: HYDROmorphone HCl 0.5 MG/0.5 ML SYRINGE 0.25 MG IVPUSH (16:50)
[2022-07-08] MEDS: ondansetron HCL 4 MG/2 ML VIAL IVPUSH (22:07)
[2022-07-08] MEDS: Famotidine/PF 20 MG/2 ML VIAL IVPUSH (22:07)
[2022-07-08] MEDS: Lactated Ringers 1,000 ML 100 ML IVCONT (23:46)
[2022-07-09] MEDS: Acetaminophen 1,000 MG/100 ML PIGGYBACK 16.7 MG IV ×2 (00:43→06:13)
[2022-07-09 04:00] VITALS: BP 140/81; PULSE 97; RESP 18; TEMP 36.8; O2SAT 97
[2022-07-09] MEDS: HYDROmorphone HCl 0.5 MG/0.5 ML SYRINGE 0.25 MG IVPUSH (05:17)
[2022-07-09] MEDS: ondansetron HCL 4 MG/2 ML VIAL IVPUSH (05:18)
[2022-07-09 06:29] LABS: MANUAL DIFF FLAG NO
[2022-07-09 06:37] LABS: Basophils Percent Auto 0.1 % (0-2); Hematocrit 36.5 % (37.0-47.0); Hemoglobin 12.4 g/dl (12.0-16.0); Imm Gran Abs Auto 0.03 X10*3/uL (0.00-0.03); Imm Gran Pct Auto 0.3 % (0.0-0.4); Lymphocytes Absolute Auto 2.1 X10*3/uL (1.2-4.9); Lymphocytes Percent Auto 17.7 % (20-40); Mean Corpuscular Hemoglobin 30.1 pg (27.0-33.0); Mean Corpuscular Volume 88.6 fL (80.0-98.0); Mean Platelet Volume 10.1 fL (9.4-12.3); Monocytes Absolute Auto 0.9 X10*3/uL (0.1-1.2); Monocytes Percent Auto 7.6 % (2-11); Neutrophils Absolute Auto 8.9 x10*3/uL (2.0-8.3); Neutrophils Percent Auto 74.3 % (45-73); Platelet Count 281 X10*3/uL (160-400); Red Blood Count 4.12 X10*6/uL (4.20-5.50); Red Cell Distribution Width 11.4 % (11.0-16.0)
[2022-07-09] MEDS: Famotidine/PF 20 MG/2 ML VIAL IVPUSH (07:06)
[2022-07-09 07:15] VITALS: BP 122/60; PULSE 83; RESP 18; TEMP 37.2; O2SAT 93
[2022-07-09 07:40] LABS: Anion Gap 16 (12-20); Blood Urea Nitrogen 10 mg/dL (9-16); Calcium 8.3 mg/dL (8.4-10.2); Carbon Dioxide 23 mmol/L (22-29); Chloride 104 mmol/L (96-108); Creatinine Clr Calc Pharmacy 130.6; Estimated Glomerular Filt Rate > 60; Glucose Random 82 mg/dL (60-115); Potassium 3.9 mmol/L (3.3-5.1); Sodium 139 mmol/L (135-145)
--- NOTE | 2022-07-09 08:40 | MHC.CM.PN ---
CM met with Patient at bedside. Patient lives in an apartment with her and Daughters ages 4 & 11 years of age. Home/self care is the goal and CM has initiate and will follow for dc planning. Patient edda received Covid vax x 2 and her PCP is Dr. Teran.
--- NOTE | 2022-07-09 10:13 | HO.POSTANES ---
Post Anesthesia Evaluation Post Anesthesia Evaluation Vital Signs: Vital Signs Temp Pulse Resp BP Pulse Ox O2 Del Method 07/09/22 07:15 99.0 F 83 18 122/60 93 Room Air 07/09/22 04:00 98.3 F 97 18 140/81 H 97 Room Air Anesthesia: General Endotracheal-GETA Mental Status: Awake Pain Control: Satisfactory Nausea/Vomiting: Severe Comments: N/V later on the floor
--- NOTE | 2022-07-09 10:14 | PM.PNGS ---
Subjective Subjective Date of Service: 07/09/22 Patient reports: no new complaints, feels better and tolerating liquids well Interval history: Patient denies chest pain, difficulty breathing or shortness of breath. She has no regurgitation or odynophagia. She denies GERD. She is seen this morning at 07:00am Physical Exam Vital Signs: Vital Signs: Last Vital Signs Temp 99.0 F 07/09/22 07:15 Pulse 83 07/09/22 07:15 Resp 18 07/09/22 07:15 BP 122/60 07/09/22 07:15 Pulse Ox 93 07/09/22 07:15 O2 Del Method 07/09/22 07:15 O2 Flow Rate 2.0 07/08/22 13:22 BMI result Body Mass Index 33.5 Dressings intact appropriate incisional tenderness noted Objective Data Active Medications Famotidine (Famotidine/Pf 20 Mg/2 Ml Vial) 20 mg IVPUSH BID [facility] Last Admin: 07/09/22 07:06 Dose: 20 mg Documented By: JUAN CARLOS Fentanyl (Fentanyl Citrate/Pf 100 Mcg/2 Ml Vial) 25 mcg IVPUSH Q5M PRN; Protocol PRN Reason: Pain, Moderate (Pain Scale 4-6 Hydromorphone HCl (Hydromorphone Hcl 0.5 Mg/0.5 Ml Syringe) 0.25 mg IVPUSH Q4H PRN; Protocol PRN Reason: Pain, Moderate (Pain Scale 4-6 Last Admin: 07/09/22 05:17 Dose: 0.25 mg Documented By: MARTY Promethazine HCl 6.25 mg/ (Sodium Chloride) 50.25 mls @ 201 mls/hr IV ONCE PRN PRN Reason: Nausea and Vomiting Lactated Ringer's (Lr) 1,000 mls @ 100 mls/hr IVCONT .Q10H [facility] Last Infusion: 07/09/22 09:57 Dose: 0 mls/hr Documented By: JUAN CARLOS Acetaminophen (Ofirmev) 1,000 mg in 100 mls @ 16.7 mls/hr IV .Q6H [facility] Last Admin: 07/09/22 06:13 Dose: 16.7 mls/hr Documented By: MARTY Metoclopramide HCl (Metoclopramide Hcl 10 Mg/2 Ml Vial) 10 mg IVPUSH Q6H PRN PRN Reason: Nausea Last Admin: 07/08/22 16:50 Dose: 10 mg Documented By: STUART Ondansetron HCl (Ondansetron Hcl 4 Mg/2 Ml Vial) 4 mg IVPUSH Q8H [facility] Last Admin: 07/09/22 05:18 Dose: 4 mg Documented By: MARTY Sodium Chloride (0.9 % Sodium Chloride Flush 3 Ml Syringe) 3 ml IVFLUSH QSHIFT [facility] Last Admin: 07/09/22 06:53 Dose: Not Given Documented By: JUAN CARLOS Non-Admin Reason: IV Running Labs 07/09/22 05:10 07/09/22 05:10 Labs: Laboratory Results - last 24 hr 07/08/22 07/09/22 07/09/22 11:29 05:10 05:10 MCV 88.6 MCH 30.1 MCHC 34.0 RDW 11.4 Plt Count 281 MPV 10.1 Immature Gran % (Auto) 0.3 Neut % (Auto) 74.3 H Lymph % (Auto) 17.7 L [place] % (Auto) 7.6 Eos % (Auto) 0.0 Baso % (Auto) 0.1 Lymph # (Auto) 2.1 [place] # (Auto) 0.9 Eos # (Auto) 0.0 Baso # (Auto) 0.0 Abs Immat Gran (auto) 0.03 Absolute Neuts (auto) 8.9 H Absolute Nucleated RBC 0.000 Nucleated RBC % (auto) 0.0 Anion Gap 11 L 16 Estim Creat Clear Calc 108.1 130.6 Estimated GFR > 60 > 60 Random Glucose 121 H 82 Calcium 8.6 D 8.3 L Procedures Date of Service Date of Service: 07/09/22 Progress Note: A&P Assessment and plan (1) S/P laparoscopic sleeve gastrectomy: Status: Acute (2) Obesity (BMI 30-39.9): Status: Acute (3) IVANIA (obstructive sleep apnea): Status: Acute (4) Depression: Status: Acute Plan Meeting discharge criteria. Labs stable. Time Spent With Patient Time: Total time managing care of this patient today ____ minutes. Quality Stroke Does the patient have a stroke diagnosis?: No VTE Prior VTE?: No VTE Risk Level:: Surgical - moderate VTE Device Contraindication: N/A - Device Ordered VTE Drug Contraindication: Treatment Not Indicated
[2022-07-09 16:28] LABS: Zinc 69 mcg/dL (60-130)
[2022-07-11 00:43] LABS: Vitamin A 49 mcg/dL (38-98)
[2022-07-11 17:58] LABS: Vitamin B1 15 nmol/L (8-30)
== END 2022-07-09 12:32 | disposition home or self-care (01) | DRG 403 ==
LOC: HO.SSSA 11:21 → HO.S3 11:27
PROVIDERS: Anesthesiology; Physician Assistant Surgical; Admitting Provider Surgery; PCP Internal Medicine; Visit Provider Surgery
PROC: 0DB64Z3 Excision of Stomach, Percutaneous Endoscopic Approach, Vertical (ICD-10-PCS; CPT 43845; principal; 2022-07-08 07:30)
DX: E66.01 Morbid (severe) obesity due to excess calories (principal); K75.81 Nonalcoholic steatohepatitis (NASH); G47.33 Obstructive sleep apnea (adult) (pediatric); F32.A Depression, unspecified; R73.03 Prediabetes; Z20.822 Contact with and (suspected) exposure to COVID-19; Z68.36 Body mass index [BMI] 36.0-36.9, adult; Z79.899 Other long term (current) drug therapy
CPT/HCPCS: 36415; 80048; 80053; 80061; 81025; 82306; 82607; 82728; 83036; 83540; 83970; 84425; 84443; 84590; 84630; 85014; 85018; 85025; 85610; 85730; 86140; 86850; 86900; 86901; 87635; 88307; 88342; C9088; J0131; J0690; J1100; J1170; J2250; J2370; J2405; J2765; J3010

== ENCOUNTER → 2022-07-14 11:34 | Outpatient (BNVA) | payer OTHER, SELFPAY | PROVIDERS: PCP Internal Medicine; Visit Provider Physician Assistant Surgical | DX: Z13.89 Encounter for screening for other disorder (principal) ==

== ENCOUNTER 2022-07-20 10:23 | Outpatient (REF) | payer OTHER, SELFPAY | END 2022-07-20 10:24 | disposition home or self-care (01) | LOC: HO.LNP 10:23 | PROVIDERS: PCP Internal Medicine; Visit Provider Physician Assistant Surgical | DX: Z13.89 Encounter for screening for other disorder (principal) ==

== ENCOUNTER 2022-07-21 16:17 | Outpatient (REF) | payer OTHER, SELFPAY | END 2022-07-21 16:18 | disposition home or self-care (01) | LOC: HO.LNP 16:17 | PROVIDERS: Visit Provider Physician Assistant Surgical | DX: T81.32XA Disruption of internal operation (surgical) wound, not elsewhere classified, initial encounter (principal) | CPT/HCPCS: 87070; 87205 ==

== ENCOUNTER → 2022-07-27 12:12 | Outpatient (BNVA) | payer OTHER, SELFPAY | PROVIDERS: PCP Internal Medicine; Visit Provider Physician Assistant Surgical | DX: Z13.89 Encounter for screening for other disorder (principal) ==

== ENCOUNTER → 2022-08-05 10:34 | Outpatient (BNVA) | payer OTHER, SELFPAY | PROVIDERS: PCP Internal Medicine; Visit Provider Physician Assistant Surgical | DX: Z13.89 Encounter for screening for other disorder (principal) ==

== ENCOUNTER → 2022-08-20 08:58 | Outpatient (BNVA) | payer OTHER, SELFPAY | PROVIDERS: PCP Internal Medicine; Referring Provider Internal Medicine; Visit Provider Physician Assistant Surgical | DX: Z13.89 Encounter for screening for other disorder (principal) ==

== ENCOUNTER → 2022-11-05 09:32 | Outpatient (BNVA) | payer OTHER, SELFPAY | PROVIDERS: PCP Internal Medicine; Visit Provider Physician Assistant Surgical ==

== ENCOUNTER 2022-11-24 17:11 | Outpatient (REF) | payer OTHER, SELFPAY ==
[2022-11-24 17:44] LABS: Appearance Urine Clear; Color Urine Yellow; Glucose Urine UA Negative (Negative); Leukocyte Esterase Urine Small (1+) (Negative); Nitrite Urine Negative (Negative); UMIC TRIGGER UA YES; Urine Blood Negative (Negative); Urine Ketones Negative (Negative); Urine Protein Negative (Neg-Trace)
[2022-11-24 17:56] LABS: Bacteria Urine Trace (None Seen); Hyaline Casts Urine 0-2 /LPF (0-2); RBC Urine 0-2 /HPF (0-2); Squamous Epithelial Cell Urine 0-2 /HPF (0-2); WBC Urine 0-5 /HPF (0-5)
== END 2022-11-24 17:12 | disposition home or self-care (01) ==
LOC: HO.LAB 17:11
PROVIDERS: PCP Internal Medicine; Visit Provider Physician Assistant Surgical
DX: R30.0 Dysuria (principal)
CPT/HCPCS: 81001

== ENCOUNTER 2023-02-08 13:39 | Outpatient (AMB) | payer OTHER, SELFPAY ==
--- NOTE | 2023-02-08 13:41 | A.OFFVIS_ITS ---
Intake VS Expanded 02/08/23 13:45 Height 5 ft 10 in Weight 211 lb 9.6 oz BMI 30.4 BP 127/79 Blood Pressure Location Rt brachial Blood Pressure Position Sitting Pulse 54 Pulse Source Pulse Oximeter Temp 97.6 F Temperature Source Temporal Artery Scan Pulse Oximetry 100 Oxygen Delivery Method Room Air Body Fat 69.2 Body Fat Percentage 32.7 Free Fat Mass 142.2 Muscle Mass 135.2 Visceral Mass 6.0 Water Mass 101.6 BMR 1,933 Intake Visit Reasons: (OV) PO LSG 07/09/22 Allergies No Known Allergies Allergy (Verified 02/08/23 13:44) HPI HPI Comments History of Present Illness Details 37 yo female s/p LSG on 07/09/22 presents for 6 month f/u. Weight today is 211.6 pounds with a BMI of 30.3. Weight loss since surgery is 21.8 pounds (op weight 233.4 pounds) Feeling well. no complaints She states she is inconsistent with exercise taking celebrate mvi Meal plan: celebrate 4 in 1 1 scoop w 1 % milk meal fistful size of protein and little more veg, 1 x per week pasta pure protein bar Pure protein 1 scoop w 1 % milk Drinking 60 oz water exercise plan: esporta but none in 3 weeks. Her job is taking up more time now. Any post op complications: none IVANIA: resolved DM: never HTN: never Hyperlipidemia: never GERD:?0-5 scale ??0 = no symptoms ??1 = symptoms noticeable but not bothersome 2 =symptoms bothersome but not daily ? 3 = symptoms bothersome and daily 4 = symptoms affect daily activities 5 = symptoms are incapacitating, unable to do daily activities ? How bad is the heartburn: 0 ? Heartburn while lying down: 0 ? Heartburn when standing up: 0 ? Heartburn after meals: 0 ? Does heartburn change your diet: 0 ? Does heartburn wake you up from sleep: 0 ? Do you have difficulty swallowin ? Do you have pain with swallowin ? If you take medicine for your reflux, does this affect your daily life: 0 Satisfaction with present condition - satisfied or not satisfied: satisfied [facility] Medical History Insomnia Sleep apnea Depression Prediabetes Surgical History Hx of section Family History Mother Hypertension Diabetes Umbilical hernia Father Uses hearing aid Sister No problems noted. Sister No problems noted. Brother No problems noted. Daughter No problems noted. Daughter No problems noted. Social History Are you a primary career development counselor to a significant other at home: No Do you presently have visiting nurse or other home services: No Alcohol intake: current Alcohol intake frequency: holidays/special occasions on ly Patient Tobacco Use Status: Never used Tobacco service: No Current occupational status: employed Review of Systems Const All systems reviewed & are unremarkable except as noted in HPI and below Physical Exam Vital Signs: Last Vital Signs Temp 97.6 F 02/08/23 13:45 Pulse 54 02/08/23 13:45 BP 127/79 02/08/23 13:45 Pulse Ox 100 02/08/23 13:45 Oxygen Delivery Method Room Air 02/08/23 13:45 BMI result Body Mass Index 30.4 Const General: cooperative and no acute distress Orientation/consciousness: patient oriented x3 Resp Effort & Inspection: normal respiratory effort Auscultation: clear to auscultation bilaterally Cardio Rate: regular rate Rhythm: regular rhythm GI Inspection: Yes normal to inspection and Yes incision (well healed) Palpation (GI): Soft to palpation and no masses Neuro General: patient oriented x3 Assessment & Plan Assessment & Plan (1) Obesity (BMI 30-39.9): Code(s): E66.9 - Obesity, unspecified Plan: change meal plan: celebrate 4 in 1 1 scoop w almond milk or water meal 7 forks protein and 7 forks veg/salad pure protein bar Pure protein 1 scoop w almond milk or water Return to [facility] for cardio goal 300 yordan/day check 6 month post op labs rtc Patricia 1 month Orders: Orders Insulin Today E66.9 - Obesity, unspecified Lipid Panel Today E66.9 - Obesity, unspecified IRON PROFILE Today E66.9 - Obesity, unspecified Complete Blood Count Auto Diff Today E66.9 - Obesity, unspecified Zinc Today E66.9 - Obesity, unspecified Vitamin B1 Today E66.9 - Obesity, unspecified Vitamin A Today E66.9 - Obesity, unspecified C Reactive Protein Today E66.9 - Obesity, unspecified PTHI Today E66.9 - Obesity, unspecified TSH reflex Free T4 Today E66.9 - Obesity, unspecified Hemoglobin A1c Today E66.9 - Obesity, unspecified Basic Metabolic Panel Today E66.9 - Obesity, unspecified Vitamin B12 and Folate Today E66.9 - Obesity, unspecified Ferritin Today E66.9 - Obesity, unspecified Vitamin D 25-OH Total Today E66.9 - Obesity, unspecified Coding Level of Care Code Est Pt Level 4 (75129) Diagnoses Obesity (BMI 30-39.9) E66.9 Time Spent (min) 40
[2023-02-08 13:45] VITALS: BP 127/79; PULSE 54; TEMP 36.4; O2SAT 100; BMI 30.4
== END 2023-02-08 14:09 | disposition home or self-care (01) ==
PROVIDERS: PCP Internal Medicine; Visit Provider Physician Assistant Surgical
DX: E66.9 Obesity, unspecified (principal)
CPT/HCPCS: 99214

== ENCOUNTER → 2023-02-08 13:39 | Outpatient (BNVA) | payer OTHER, SELFPAY | PROVIDERS: PCP Internal Medicine; Visit Provider Physician Assistant Surgical ==